=== PATIENT | male | born 1985 | race African-American/Black ===

== ENCOUNTER 2019-11-28 19:49 | Emergency (ER) | payer MEDICARE, MEDICAID ==
[~2019-11-28] VITALS: Ht 177.8 cm; Wt 78.0 kg
[2019-11-28] MEDS ORDERED: KETOROLAC 60MG/2ML VIAL IM ONE (20:15)
[2019-11-28] MEDS ORDERED: HYDROCODONE/ACETAMINOPHEN 5/325MG TABLET PO ONE (20:15)
[2019-11-28] MEDS ORDERED: ACETAMINOPHEN 500MG TABLET PO ONE (20:30)
[2019-11-28 22:17] VITALS: BP 109/69
== END 2019-11-28 22:20 | disposition home or self-care (01) ==
LOC: ER 19:49
DX: B34.9 Viral infection, unspecified (principal)
CPT/HCPCS: 99283